=== PATIENT | female | born 1940 | race Two or more races ===

== ENCOUNTER 2020-04-29 09:57 | Outpatient (CLI) | payer OTHER ==
[~2020-04-29 09:57] MED LIST: ASPIR 8181 MG PO; AVAPRO150 MG PO; CATAFLAM50 MG PO; CEFADROXIL500 MG PO; METFORMIN HCL500 M1 PO; NABUMETONE500 MG PO; OMEPRAZOLE40 MG PO; PERCOCET 5/3251 TAB PO; XARELTO10 MG PO; ZOCOR40 MG PO
== END 2020-04-29 10:10 | disposition home or self-care (01) ==
LOC: SONOGRAMA 09:57
PROVIDERS: ATTEND Pathology Anatomic Pathology & Clinical Pathology
DX: D34 Benign neoplasm of thyroid gland (principal); E04.8 Other specified nontoxic goiter

== ENCOUNTER 2020-11-07 07:21 | Emergency (ER) | payer OTHER ==
[~2020-11-07] VITALS: Ht 154.9 cm; Wt 88.5 kg
== END 2020-11-07 15:34 | disposition home or self-care (01) ==
LOC: ER 07:21 → CPU-OBS 08:25 → ER 08:25
DX: I16.0 Hypertensive urgency (principal); I10 Essential (primary) hypertension; R07.89 Other chest pain